=== PATIENT | male | born 1935 | race Caucasian/White ===

== ENCOUNTER 2018-09-22 05:09 | Day surgery (SDC) | payer MEDICARE, MEDICAID ==
[~2018-09-22] VITALS: Ht 167.6 cm; Wt 72.6 kg
[~2018-09-22 05:09] MED LIST: ASPI-1159 PO; DORZ10DR8 OP; HYDR25TA PO; LOSA50TA20 PO; METF-414 PO; ROSU10TA25 PO; VERA120T11 PO
[2018-09-22] MEDS ORDERED: CYCLOPENTOLATE HCL 1% OPHTH DROPS 2ML LEFTEYE SCH (05:30)
[2018-09-22] MEDS ORDERED: PHENYLEPHRINE HCL 10% OPHTH DROPS 5ML LEFTEYE SCH (05:30)
[2018-09-22] MEDS ORDERED: TROPICAMIDE 1% OPHTH DROPS 15ML LEFTEYE SCH (05:30)
[2018-09-22] MEDS ORDERED: BALANCED SALT IRRIG SOLN COMB1 500ML OP ONE (06:00)
[2018-09-22] MEDS ORDERED: HYALURONATE SODIUM 14 MG/ML 0.85ML SYRINGE IO ONE (07:00)
[2018-09-22] MEDS ORDERED: FENTANYL CITRATE/PF 50MCG/ML 2ML VIAL ONE (08:02)
[2018-09-22] MEDS ORDERED: MIDAZOLAM HCL 2 MG/2 ML VIAL ONE (08:02)
[2018-09-22] MEDS ORDERED: PROPOFOL 200MG/20ML VIAL IV ONE (08:02)
[2018-09-22] MEDS ORDERED: ONDANSETRON HCL 4MG/2ML INJ ONE (08:22)
[2018-09-22] MEDS ORDERED: DEXAMETHASONE 4MG/ML 1ML VIAL ONE (08:22)
[2018-09-22] MEDS ORDERED: HYDROMORPHONE HCL/PF 2MG/ML CPJ IV PRN (08:30)
[2018-09-22] MEDS ORDERED: MEPERIDINE HCL/PF 25MG/ML CPJ IV PRN (08:30)
[2018-09-22] MEDS ORDERED: ONDANSETRON HCL 4MG/2ML INJ IV PRN (08:30)
[2018-09-22] MEDS ORDERED: LABETALOL HCL 5MG/ML VIAL 20ML IV PRN (08:30)
[2018-09-22] MEDS ORDERED: PHENYLEPHRINE HCL 10% OPHTH DROPS 5ML ONE (15:40)
[2018-09-22] MEDS ORDERED: PREDNISOLONE ACETATE 1% OPHTH DROPS 1ML ONE (15:40)
[2018-09-22] MEDS ORDERED: TETRACAINE 0.5% OPHTH DROPS 4ML ONE (15:40)
[2018-09-22] MEDS ORDERED: CYCLOPENTOLATE HCL 1% OPHTH DROPS 2ML ONE (15:40)
[2018-09-22] MEDS ORDERED: BALANCED SALT IRRIG SOLN 15ML ONE (15:40)
[2018-09-22] MEDS ORDERED: TROPICAMIDE 1% OPHTH DROPS 15ML ONE (15:40)
[2018-09-22] MEDS ORDERED: CIPROFLOXACIN 0.3% OPHTH SOLN 2.5ML ONE (15:40)
[2018-09-22] MEDS ORDERED: BUPIVACAINE HCL/PF 0.75% (7.5MG/ML) 10ML ONE (15:40)
[2018-09-22] MEDS ORDERED: NEO/POLYMYX B SULF/DEXAMETH OPHTH OINT 3.5GM ONE (15:40)
[2018-09-22] MEDS ORDERED: LIDOCAINE HCL 2%/EPINEPHRINE 1:100,000 20 ML VIAL INFIL ONE (15:40)
== END 2018-09-22 10:30 | disposition home or self-care (01) ==
LOC: OR 05:09
PROVIDERS: ATTEND Ophthalmology
DX: H25.12 Age-related nuclear cataract, left eye (principal); I10 Essential (primary) hypertension; E11.9 Type 2 diabetes mellitus without complications; E78.00 Pure hypercholesterolemia, unspecified; Z79.899 Other long term (current) drug therapy; Z79.82 Long term (current) use of aspirin; Z98.890 Other specified postprocedural states
CPT/HCPCS: 66984; 82962; J1100; J2250; J2405; J3010; J3490; V2632; J2704